=== PATIENT | female | born 1960 | race Caucasian/White ===

== ENCOUNTER → 2018-02-28 06:57 | Outpatient (CLI) | payer MEDICARE, SELFPAY ==
[2018-02-28 07:50] LABS: ALB/GLOB Ratio 0.9 RATIO (0.9-2.4); AST(SGOT) 33 U/L (15-37); Alanine Aminotransfer ALT/SGPT 51 U/L (13-56); Albumin, Serum 3.3 g/dL (3.2-5.0); Alkaline Phosphatase 109 U/L (45-117); Anion Gap 6 (5-15); BUN 13 mg/dL (7-18); BUN/Creat Ratio 16.6 RATIO (10-20); Calcium,Total 8.3 mg/dL (8.5-10.1); Chloride 107 mmol/L (98-107); Cholesterol 188 mg/dL (200); Creatinine, Serum 0.78 mg/dL (0.55-1.02); EST Glomerular Filtration Rate 80 mL/min (>60); Est Glom Filt Rate - Afr Amer 97 mL/min (>60); Globulin 3.7 g/dL (2.2-4.2); Glucose 131 mg/dL (74-106); High Density Lipoprotein 45 mg/dL; Potassium 4.4 mmol/L (3.5-5.1); Sodium Level 141 mmol/L (136-145); Thyroid Stim Hormone (TSH) 1.33 uIU/mL (0.358-3.74); Triglycerides 141 mg/dL; Very Low Density Lipoprotein 28 mg/dL (5-40)
== END ==
PROVIDERS: Family Provider Family Medicine; PCP Family Medicine; Referring Provider Family Medicine; Visit Provider Family Medicine
DX: G62.9 Polyneuropathy, unspecified (principal); R53.83 Other fatigue; E66.9 Obesity, unspecified
CPT/HCPCS: 36415; 80053; 80061; 84443

== ENCOUNTER → 2018-04-04 08:31 | Outpatient (CLI) | payer MEDICARE, SELFPAY ==
--- NOTE | 2018-04-04 08:33 | BI_ITS ---
MAMMOGRAPHY - BILATERAL SCREENING REASON FOR EXAM: Female, 58 years old. Routine annual screening examination. PERTINENT HISTORY: Mother with breast cancer. Remote right excisional breast biopsy. TECHNIQUE: Digital bilateral breast carlos (3D mammographic acquisition) in the CC and MLO projections. 2-D mediolateral oblique (MLO) and craniocaudad (CC) views of both breasts were obtained. CAD: Full Field Digital Mammography with Computer Added Detection was performed. COMPARISON: Comparison is made with prior outside examination dated June 06, 2012. FINDINGS: Breast Composition: There are scattered areas of fibroglandular density. There is an 8.3 mm x 8.8 mm well-defined nodule in the retroareolar region of the left breast. Correlation with ultrasound is recommended. Small benign-appearing bilateral axillary lymph nodes. No other significant abnormalities are identified. BI/SCREENING MAMM (CAD), BILAT IMPRESSION: 8.3 mm x 8.8 mm well-defined nodule in the retroareolar region of the left breast as described. Correlation with ultrasound is recommended. ASSESSMENT CATEGORY: BIRADS Category 0: Incomplete. Need additional imaging evaluation. A letter regarding these results will be sent to the patient by the facility within 30 days. Approximately 10% of breast cancers are not detected by mammography. A normal mammogram should not delay biopsy of a clinically suspicious abnormality. [id number] Electronically Signed: Jorge Skaggs MD at 13:23 EDT Tel [phone], Service support ,
== END ==
PROVIDERS: Family Provider Family Medicine; PCP Family Medicine; Referring Provider Family Medicine; Visit Provider Family Medicine
DX: Z12.31 Encounter for screening mammogram for malignant neoplasm of breast (principal); R53.83 Other fatigue; Z80.3 Family history of malignant neoplasm of breast
CPT/HCPCS: 77063; 77067

== ENCOUNTER → 2018-04-11 09:12 | Outpatient (CLI) | payer MEDICARE, SELFPAY ==
--- NOTE | 2018-04-11 09:15 | US_ITS ---
STUDY: ULTRASOUND BREAST - LEFT REASON FOR EXAM: Female, 58 years old. Abnormal screening mammogram. TECHNIQUE: Axial and longitudinal images of the LEFT breast were performed with a high resolution ultrasound transducer. COMPARISON: Comparison is made with prior mammogram dated April 04, 2018. FINDINGS: LEFT Breast: The mammographic abnormality corresponds to a 8mm by 13 mm x 4 mm cyst at the 6:00 position breast at 1 cm from the nipple. This also evidence of dilated subareolar ducts. US/Breast Limited Unilateral IMPRESSION: The mammographic abnormality corresponds to an 8 mm x 13 mm x 4 mm cyst. Mild degree of retroareolar ductal dilatation. ASSESSMENT CATEGORY: BIRADS Category 2: Benign. A letter regarding these results will be sent to the patient by the facility within 30 days. Electronically Signed: Jorge Skaggs MD at 11:36 EST Tel [phone], Service support ,
== END ==
PROVIDERS: Family Provider Family Medicine; PCP Family Medicine; Referring Provider Family Medicine; Visit Provider Family Medicine
DX: R92.8 Other abnormal and inconclusive findings on diagnostic imaging of breast (principal); N63.42 Unspecified lump in left breast, subareolar
CPT/HCPCS: 76642

== ENCOUNTER → 2019-04-06 08:28 | Outpatient (CLI) | payer MEDICARE, SELFPAY ==
[2019-03-18 15:17] VITALS: BMI 31.8
--- NOTE | 2019-04-06 08:31 | BI_ITS ---
MAMMOGRAPHY - BILATERAL SCREENING REASON FOR EXAM: Female, 59 years old. Routine annual screening examination. PERTINENT HISTORY: Mother with breast cancer. TECHNIQUE: Digital bilateral breast tammy (3D mammographic acquisition) in the CC and MLO projections. 2-D mediolateral oblique (MLO) and craniocaudad (CC) views of both breasts were obtained. CAD: Full Field Digital Mammography with Computer Added Detection was performed. COMPARISON: Comparison is made with prior study dated April 04, 2018. FINDINGS: Breast Composition: There are scattered areas of fibroglandular density. There are no dominant masses or suspicious calcifications. Stable 8mm by 8.5 mm well-defined nodule in the retroareolar region of the left breast. This was demonstrated to be a small cyst on prior ultrasound. No other significant abnormalities are identified. There has been no significant change since the prior study. BI/SCREEN MAMM (CAD) W/TAMMY BILAT IMPRESSION: Stable bilateral screening mammogram. Yearly follow-up mammogram recommended. (A) ASSESSMENT CATEGORY: BIRADS Category 2: Benign. A letter regarding these results will be sent to the patient by the facility within 30 days. Approximately 10% of breast cancers are not detected by mammography. A normal mammogram should not delay biopsy of a clinically suspicious abnormality. [id number] Electronically Signed: Jorge Skaggs, at 13:39 EST , Service support ,
[2019-04-06 09:43] LABS: Hemoglobin A1c 5.9 % (4.2-6.3)
== END ==
PROVIDERS: Family Provider Family Medicine; PCP Family Medicine; Referring Provider Family Medicine; Visit Provider Family Medicine
DX: Z12.31 Encounter for screening mammogram for malignant neoplasm of breast (principal); R73.01 Impaired fasting glucose; Z80.3 Family history of malignant neoplasm of breast
CPT/HCPCS: 36415; 77063; 77067; 83036

== ENCOUNTER → 2021-02-15 09:58 | Outpatient (CLI) | payer MEDICARE, SELFPAY ==
[2021-02-15 11:22] LABS: ALB/GLOB Ratio 0.8 RATIO (0.9-2.4); AST(SGOT) 32 U/L (15-37); Alanine Aminotransfer ALT/SGPT 54 U/L (13-56); Albumin, Serum 3.3 g/dL (3.2-5.0); Alkaline Phosphatase 115 U/L (45-117); Anion Gap 3 (5-15); BUN 14 mg/dL (7-18); BUN/Creat Ratio 17.5 RATIO (10-20); Calcium,Total 8.7 mg/dL (8.5-10.1); Chloride 106 mmol/L (98-107); EST Glomerular Filtration Rate 78 mL/min (>60); Est Glom Filt Rate - Afr Amer 94 mL/min (>60); Globulin 3.9 g/dL (2.2-4.2); Glucose 171 mg/dL (74-106); Potassium 3.8 mmol/L (3.5-5.1); Protein, Total 7.2 g/dL (6.4-8.2); Sodium Level 140 mmol/L (136-145)
[2021-02-15 11:26] LABS: Hemoglobin A1c 6.3 % (3.8-5.6)
== END ==
PROVIDERS: PCP Family Medicine; Referring Provider Family Medicine; Visit Provider Family Medicine
DX: R53.83 Other fatigue (principal); R73.09 Other abnormal glucose
CPT/HCPCS: 36415; 80053; 83036; 84443

== ENCOUNTER 2021-06-05 12:48 | Outpatient (CLI) | payer MEDICARE, SELFPAY ==
--- NOTE | 2021-06-05 12:52 | BI_ITS ---
MAMMOGRAPHY - BILATERAL SCREENING REASON FOR EXAM: Female, 61 years old. Routine annual screening examination. PERTINENT HISTORY: Mother with breast cancer. Remote right excisional breast biopsy. TECHNIQUE: Digital bilateral breast tammy (3D mammographic acquisition) in the CC and MLO projections. 2-D mediolateral oblique (MLO) and craniocaudad (CC) views of both breasts were obtained. CAD: Full Field Digital Mammography with Computer Added Detection was performed. COMPARISON: Comparison is made with prior study dated 04/06/2019 and 04/04/2018. FINDINGS: Breast Composition: There are scattered areas of fibroglandular density. There are no dominant masses or suspicious calcifications. Stable 8 mm x 8.5 mm well-defined nodule in the retroareolar region of the left breast this was demonstrated to be a cyst on prior sonogram. No other significant abnormalities are identified. There has been no significant change since the prior study. BI/SCRN MAMM (CAD)W/TAMMY BILAT IMPRESSION: Stable bilateral screening mammogram. Yearly follow-up mammogram recommended. (A) ASSESSMENT CATEGORY: BIRADS Category 2: Benign. A letter regarding these results will be sent to the patient by the facility within 30 days. Approximately 10% of breast cancers are not detected by mammography. A normal mammogram should not delay biopsy of a clinically suspicious abnormality. [id number] Electronically Signed: Jorge Skaggs MD at 14:01 EST , Service support ,
== END 2021-06-05 23:59 | disposition short-term general hospital (02) ==
LOC: OPBI 12:49
PROVIDERS: PCP Family Medicine; Referring Provider Family Medicine; Visit Provider Family Medicine
DX: Z12.31 Encounter for screening mammogram for malignant neoplasm of breast (principal); Z80.3 Family history of malignant neoplasm of breast
CPT/HCPCS: 77063; 77067

== ENCOUNTER 2021-06-12 06:52 | Day surgery (SDC) | payer MEDICARE, SELFPAY ==
[2021-06-12] VITALS (7 sets, daily range): BP systolic 104–135; BP diastolic 54–78; PULSE 70–76; RESP 16; TEMP 36.2–36.4; O2SAT 93–97; BMI 34.5
--- NOTE | 2021-06-12 | COLBX_PTH ---
PATIENT: KLAUS MURRAY LOC: EN U#:[id number] AGE/SX: 61/F ROOM: RE06/12/[address]: Dr. Nilton Jean Baptiste DO : 1960 BED: DIS: 06/12/2021 SPEC #: [id number] RECD: 06/12/21 12:51 STATUS: CY JENNY #: [id number] AB: 06/12/21 00:[address]: Nilton Jean Baptiste DEPT: SURGICAL PATHOLOGY RECD BY: Floyd Scanlon ENTERED: 06/12/21 12:52 SP TYPE: COLON BX OTHR DR: Dr. Guanaco Terry DO Tissues: COLON BIOPSY Procedures: Surgery Specimen Level IV HEADER OPERATION: Colonoscopy (MAC) PRE-OP DIAGNOSIS: History of colon cancer TISSUE SUBMITTED: Biopsy of anastomosis MICROSCOPIC DIAGNOSIS Colon at area of anastomosis, biopsy: No pathologic change. AM:alistair 06/13/2021 MICROSCOPIC DESCRIPTION Slides are reviewed. GROSS DESCRIPTION Received in fixative is one container labeled with the patient's name and designated biopsy of anastomosis. The specimen consists of two irregular fragments of light garcia soft tissue that in aggregate measure 0.4 x 0.3 x 0.1 cm. The specimen is totally submitted in one cassette. / SJ:rg 06/12/2021 TC:5 CPT: 97210
[2021-06-12] MEDS: Lactated Ringers 1,000 ML 15 ML IV (07:21)
--- NOTE | 2021-06-12 07:46 | PCM.HP.BLA ---
History and Physical Date of Admission: 06/12/21 KLAUS MURRAY, is a 61 F who presents to the office today for a surveillance colonoscopy. She was originally diagnosed with colon cancer back in 2001. Her original surgery was a segmental resection with primary anastomosis. She did not originally have a temporary colostomy. She had a recurrence of the cancer 2 years later and after that surgery she underwent chemo and radiation. Presents today to colorectal cancer follow up. Last colonoscopy performed 5-6 years ago with normal results. 2001 She was diagnosed with colorectal cancer with resection, external radiation and chemotherapy. Relapse in 2003 with colostomy placed, internal radiation and chemotherapy. Currently in remission. ROS Const Constitutional: Positive for fatigue and headache(s) ENT ENT: Positive for headache(s) Gastro GI: Positive for heartburn Neuro Neurology: Positive for headache(s) Endo Endocrine: Positive for fatigue Exam Const General: cooperative and comfortable Nutritional Appearance: average body habitus and well nourished HENMT Head: normal to inspection Ears: hearing grossly normal bilaterally Nose: external nose normal Face and sinus: normal facial exam Mouth: oral mucosae normal Throat: posterior oropharynx normal Eyes General: appearance normal, both eyes and all related structures Neck Neck: normal visual inspection Chest Chest palpation & inspection: normal inspection of the chest and normal palpation of entire chest wall Resp Effort & Inspection: normal respiratory effort Auscultation: Bilateral: Clear to Auscultation Cardio Palpation: normal PMI Rate: regular rate Rhythm: regular rhythm GI Inspection: normal to inspection and other (Normal-appearing stoma.) Auscultation: normal bowel sounds Percussion: normal to percussion Palpation: no hepatosplenomegaly Skin General: no rashes or lesions noted Neuro General: patient alert Extrem General: normal to inspection Psych Affect: normal affect Quality Reporting Tobacco Screening ([facility] 138) Smoking Status: Never smoker Assessment and Plan Assessment and Plan (1) History of colon cancer in adulthood: Status: Acute Plan - Dr. Callaway Friend, DO: She will undergo colonoscopy. We will go through the stoma and all way to determine ileum. She was explained alternatives, risk, benefits including not withstanding bleeding, infection, sepsis, perforation, need for emergency or . Should have an ASA of one. And I have re-examined the patient. There are no clinical changes since date of exam.
--- NOTE | 2021-06-12 08:29 | OP.COLON_ITS ---
Patient Name: Ambreen Scales Procedure Date: 06/12/2021 7:51 AM Date of : 1960 Age: 61 Procedure: Colonoscopy Indications: High risk colon cancer surveillance: Personal history of colon cancer Providers: Nilton Jean Baptiste DO Medicines: See the Anesthesia note for documentation of the administered medications Patient Profile: Last Colonoscopy: 3 years ago. Complications: No immediate complications. Procedure: Pre-Anesthesia Assessment: - Prior to the procedure, a History and Physical was performed, and patient medications and allergies were reviewed. The patient is competent. The risks and benefits of the procedure and the sedation options and risks were discussed with the patient. All questions were answered and informed consent was obtained. Patient identification and proposed procedure were verified by the physician in the pre-procedure area. Mental Status Examination: alert and oriented. Airway Examination: normal oropharyngeal airway and neck mobility. Respiratory Examination: clear to auscultation. CV Examination: normal. Prophylactic Antibiotics: The patient does not require prophylactic antibiotics. Prior Anticoagulants: The patient has taken no previous anticoagulant or antiplatelet agents. After reviewing the risks and benefits, the patient was deemed in satisfactory condition to undergo the procedure. The anesthesia plan was to use moderate sedation / analgesia (conscious sedation). Immediately prior to administration of medications, the patient was re-assessed for adequacy to receive sedatives. The heart rate, respiratory rate, oxygen saturations, blood pressure, adequacy of pulmonary ventilation, and response to care were monitored throughout the procedure. The physical status of the patient was re-assessed after the procedure. After I obtained informed consent, the scope was passed under direct vision. Throughout the procedure, the patient's blood pressure, pulse, and oxygen saturations were monitored continuously. The pediatric colonoscope was introduced through the anus and advanced to the cecum, identified by the appendiceal orifice, ileocecal valve and palpation. The ileocecal valve, appendiceal orifice, and rectum were photographed. Moderate Sedation: Moderate (conscious) sedation was administered by the endoscopy nurse and supervised by the endoscopist. The following parameters were monitored: oxygen saturation, heart rate, blood pressure, and response to care. Total physician intraservice time was 15 minutes. Scope In: 8:06:51 AM Scope Withdrawal Time 0 hours 10 minutes 40 seconds Scope Out: 8:20:00 AM Total Procedure Duration Time 0 hours 13 minutes 9 seconds Findings: There was evidence of a prior end sigmoid colostomy in the sigmoid colon. This was patent and was characterized by healthy appearing mucosa. The anastomosis was traversed. The entire examined colon appeared normal. An area of mildly congested mucosa was found at the surgical stoma. Biopsies were taken with a cold forceps for histology. Verification of patient identification for the specimen was done. Estimated blood loss: none. Impression: - Patent end sigmoid colostomy, characterized by healthy appearing mucosa. - The entire examined colon is normal. - No specimens collected. Recommendation: - Discharge patient to home. - Resume previous diet. - Continue present medications. - Await pathology results. - Repeat colonoscopy in 3 years for surveillance based on personal history of colon cancer. - Return to GI office PRN. Procedure Code(s): --- Professional --- 52282, Colonoscopy, flexible; with biopsy, single or multiple 94663, 59, Moderate sedation services provided by the same physician or other qualified health family day care provider performing the diagnostic or therapeutic service that the sedation supports, requiring the presence of an independent trained observer to assist in the monitoring of the patient's level of consciousness and physiological status; initial 15 minutes of intraservice time, patient age 5 years or older CPT copyright 2017 [employer]. All rights reserved. The codes documented in this report are preliminary and upon batch room technician review may be revised to meet current compliance requirements. Nilton Jean Baptiste DO 06/12/2021 8:28:14 AM This report has been signed electronically. Number of Addenda: 1 Note Initiated On: 06/12/2021 7:51 AM Addendum Number: 1 Addendum Date: 02/08/2022 6:12:02 AM MAC was used instead of moderate sedation for the patient. Nilton Jean Baptiste DO 02/08/2022 6:12:07 AM This report has been signed electronically.
--- NOTE | 2021-06-12 08:29 | OP.CCLET_ITS ---
02/08/2022 Guanaco Terry Re : Colonoscopy procedure for Ambreen Scales Dear Dr. Terry This procedure was performed on Saturday, June 12, 2021. My impressions and recommendations are as follows: Impressions : - Patent end sigmoid colostomy, characterized by healthy appearing mucosa. - The entire examined colon is normal. - No specimens collected. Recommendations : - Discharge patient to home. - Resume previous diet. - Continue present medications. - Await pathology results. - Repeat colonoscopy in 3 years for surveillance based on personal history of colon cancer. - Return to GI office PRN. My findings are described in the full procedure note, which is enclosed. If I can be of further assistance, please feel free to contact me at . Sincerely, Nilton Friend, 06/12/2021 8:28:14 AM This report has been signed electronically.
[2021-06-12 09:41] LABS: Bedside Glucose 95 mg/dL (70-110)
== END 2021-06-12 23:59 | disposition home or self-care (01) ==
LOC: EN 06:56 → AC 06:57
PROVIDERS: PCP Family Medicine; Referring Provider Family Medicine; Visit Provider Internal Medicine Gastroenterology
PROC: 0DJD8ZZ Inspection of Lower Intestinal Tract, Via Natural or Artificial Opening Endoscopic (ICD-10-PCS; CPT 45378; principal; 2021-06-12 07:55)
DX: Z12.11 Encounter for screening for malignant neoplasm of colon (principal); E11.9 Type 2 diabetes mellitus without complications; Z85.038 Personal history of other malignant neoplasm of large intestine; K21.9 Gastro-esophageal reflux disease without esophagitis; Z90.49 Acquired absence of other specified parts of digestive tract
CPT/HCPCS: 82962; 88305; J7120; J2405

== ENCOUNTER → 2022-03-14 | Outpatient (CLI) | payer MEDICARE, SELFPAY ==
[2022-03-14 12:25] LABS: Absolute Lymphocyte Count 2.12 X10^3/uL (0.83-4.51); Absolute Neutrophil Count 3.9 X10^3/uL (2.0-7.7); Basophil# 0.04 X10^3/uL; Basophil% 0.6 % (0-1); Eosinophil# 0.14 X10^3/uL; Eosinophils% 2.1 % (0-5); Hematocrit 44.5 % (37-47); Hemoglobin 14.7 g/dL (12.0-15.0); Lymphocyte # 2.12 X10^3/ul (0.83-4.51); Lymphocyte % 31.4 % (19-41); Mean Corpuscular Hgb 28.5 pg (27.0-32.0); Mean Corpuscular Volume 86.4 fL (81-99); Mean Platelet Vol. 11.2 fl (6.2-12.0); Monocyte# 0.54 X10^3/uL; NRBC Flagged by Analyzer 0 % (0-5); Neutrophil % 57.6 % (47-70); Platelet Count 247 K/mm3 (150-450); RBC Distribution Width CV 13.1 % (11.6-14.6); RBC Distribution Width SD 40.9 fl (35.1-43.9); Red Blood Count 5.15 M/mm3 (4.2-5.4); White Blood Count 6.8 K/mm3 (4.4-11.0)
[2022-03-14 12:40] LABS: ALB/GLOB Ratio 0.9 RATIO (0.9-2.4); AST(SGOT) 32 U/L (15-37); Alanine Aminotransfer ALT/SGPT 41 U/L (13-56); Albumin, Serum 3.5 g/dL (3.2-5.0); Alkaline Phosphatase 113 U/L (45-117); Anion Gap 7 (5-15); BUN 12 mg/dL (7-18); BUN/Creat Ratio 17.3 RATIO (10-20); Calcium,Total 8.9 mg/dL (8.5-10.1); Chloride 108 mmol/L (98-107); Cholesterol 196 mg/dL (200); EST Glomerular Filtration Rate 91 mL/min (>60); Est Glom Filt Rate - Afr Amer 110 mL/min (>60); Globulin 3.7 g/dL (2.2-4.2); Glucose 121 mg/dL (74-106); High Density Lipoprotein 46 mg/dL; Potassium 3.8 mmol/L (3.5-5.1); Protein, Total 7.2 g/dL (6.4-8.2); Sodium Level 143 mmol/L (136-145); Thyroid Stim Hormone (TSH) 0.72 uIU/mL (0.358-3.74); Triglycerides 183 mg/dL; Very Low Density Lipoprotein 37 mg/dL (5-40)
[2022-03-14 13:08] LABS: Hemoglobin A1c 6.4 % (3.8-5.6)
== END | disposition home or self-care (01) ==
LOC: BIMLAB 09:11
PROVIDERS: PCP Family Medicine; Referring Provider Nurse Practitioner Family; Visit Provider Nurse Practitioner Family
DX: Z00.00 Encounter for general adult medical examination without abnormal findings (principal); E11.9 Type 2 diabetes mellitus without complications; G62.9 Polyneuropathy, unspecified; R53.83 Other fatigue
CPT/HCPCS: 36415; 80053; 80061; 83036; 84443; 85025

== ENCOUNTER 2022-10-18 15:50 | Emergency (ER) | payer MEDICARE, SELFPAY ==
[2022-10-18 15:51] VITALS: BP 187/81; PULSE 88; RESP 18; TEMP 36.7; O2SAT 98; BMI 36.6
--- NOTE | 2022-10-18 17:39 | EX.ED.GENINJ ---
HPI <ANDRADE Cornejo - Last Filed: 10/18/22 20:04> History of Present Illness Chief Complaint: Other, Pain/Inj Narrative Narrative: 52-year-old female states she got her eyes dilated last night when she was driving home she started to have sharp pains in both her external ears. The sharp pain comes in a short burst and is in both the ears. She also has nausea and dry heaving. She has no headache, runny nose, sore throat, or upper respiratory symptoms. She states her eye evaluation was normal and she told that no change was needed to her contacts from last year. [facility] <ANDRADE Cornejo - Last Filed: 10/18/22 20:04> [facility] Medical History (Updated 10/18/22 @ 18:15 by ANDRADE Cornejo) Diabetes Encounter for preventative adult health care examination Frequent headaches GERD (gastroesophageal reflux disease) Heartburn History of colon cancer Neuropathy Seasonal allergies Status post chemoradiation Wears contact lenses Home Medications meclizine 25 mg tablet 25 mg PO BID PRN dizziness #60 tabs 02/25/18 [Rx Last Taken Unknown] gabapentin 100 mg capsule 100 mg PO DAILY #90 caps 05/10/21 [Rx Last Taken Unknown] semaglutide 0.25 mg or 0.5 mg (2 mg/1.5 mL) subcutaneous pen injector (Ozempic) 0.25 mg (0.2 mL) subcut QWEEK #1.5 mL 03/20/22 [Rx Last Taken Unknown] Allergy/AdvReac Type Severity Reaction Status Date / Time adhesive tape Allergy Severe Rash Verified 10/18/22 15:52 Corticosteroids Allergy Severe Other Verified 10/18/22 15:52 (Glucocorticoids) [steriods] Opioids - Morphine Analogues Allergy Severe stop Verified 10/18/22 15:52 breathing Penicillins Allergy Severe Rash Verified 10/18/22 15:52 diphenhydramine AdvReac Severe Other Verified 10/18/22 15:52 [From Benadryl] oxycodone [From Percocet] AdvReac Severe other Verified 10/18/22 15:52 Family History Father Myocardial infarction, Onset Age: 63 passed from it. Diabetes Mother Diabetes Parkinsons Breast cancer Grandmother Hypertension CVA (cerebral vascular accident) Surgical History (Updated 12/31/21 @ 08:11 by Mary Powers) H/O: hysterectomy History of arthroscopic knee surgery History of back surgery History of bowel resection History of breast biopsy History of carpal tunnel release History of colostomy history of stoma revision History of tonsillectomy Social History Smoking Status: Never smoker alcohol intake: never substance use type: does not use what type of physical activity do you participate in: none ROS <ANDRADE Cornejo - Last Filed: 10/18/22 20:04> ROS ED ROS Narrative Constitutional: Negative for fever, chills, malaise. ENT: Negative for sore throat, rhinorrhea. CVS: Negative for chest pain, syncope. Respiratory: Negative for shortness of breath, cough. GI: Positive for nausea. Negative for abdominal pain, vomiting, diarrhea. Neuro: Negative for headache. Skin: Negative for rash. EXAM <ANDRADE Cornejo - Last Filed: 10/18/22 20:04> Physical Exam Narrative Exam Narrative: CONST: Patient sitting in no acute distress. EYES: Normal inspection. ENT: Moist mucous membranes with normal oropharynx, nares clear. Normal external inspection of the ears with no tenderness over the pinna or tragus, normal canals and TMs bilaterally. No mastoid erythema swelling or tenderness. NECK: Normal inspection. No meningismus. RESP: No respiratory distress, CTAB. CVS: Regular rate and rhythm, no murmur, no gallop. SKIN: Color normal, no rash, warm, dry, intact. EXTREMITIES: Normal appearance, no pedal edema. NEURO: Oriented x4. PSYCH: Normal affect. Const Vital Signs: 10/18/22 15:51 10/18/22 17:44 10/18/22 18:39 Temperature 98.1 F Temperature Source Temporal Pulse Rate 88 76 Respiratory Rate 18 15 Respiratory Effort Normal Non-Labored Respiratory Pattern Normal Blood Pressure 187/81 H 149/88 H Blood Pressure Mean 116 Pulse Ox 98 97 Oxygen Delivery Method Room Air <Dr. Reuben Li DO - Last Filed: 10/19/22 00:02> Physical Exam Const Vital Signs: 10/18/22 15:51 10/18/22 17:44 10/18/22 18:39 Temperature 98.1 F Temperature Source Temporal Pulse Rate 88 76 Respiratory Rate 18 15 Respiratory Effort Normal Non-Labored Respiratory Pattern Normal Blood Pressure 187/81 H 149/88 H Blood Pressure Mean 116 Pulse Ox 98 97 Oxygen Delivery Method Room Air [facility] <ANDRADE Cornejo - Last Filed: 10/18/22 20:04> [facility] Narrative Medical decision making narrative: Patient is having sharp pains in both external ears. She appears well and nontoxic. BP is 187/81 with otherwise normal vital signs. Her HEENT exam is normal. Her ears appear normal there is no reproducible pain. There are no signs of otitis media or externa. No evidence of mastoiditis. Her cranial nerves are intact. The distribution of her pain is not consistent with trigeminal neuralgia. There is no evidence of rash or zoster. I am not sure what the etiology of her pain is but at this time it does not appear to be life-threatening and I recommended she follow-up with her primary care doctor. <Dr. Reuben Li DO - Last Filed: 10/19/22 00:02> [facility] Treatment and Re-Evaluation Narrative: ED attending note: I evaluated the patient in conjunction with the GERARDO. I agree with his/her statements and above findings. I have personally performed a face to face assessment of the patient and have reviewed the GERARDO Note. I performed a substantive portion of the visit including all aspects of the following. I personally saw the patient performed chart review, physical exam, reviewed labs, imaging (if obtained), and formulated a treatment and management plan. Exam: Nursing triage notes reviewed, Vital signs reviewed Constitutional: please see [facility] HENT: MMM, no obvious ear abnormalities, no evidence of hematoma auris, TMs pearly augustine, normal cone of light, no hyperemia, no middle ear effusion, no mastoid tenderness. No temporal artery tenderness. Eyes: Pupils equal round and reactive to light, Extraocular muscles intact Neck: No stridor, no JVD, full neck ROM Lungs: Clear to auscultation, No wheezing or rales. No increased work of breathing, no conversational dyspnea, no accessory muscle use, no nasal flaring. No respiratory distress noted Heart: Regular rate and rhythm, No murmurs, No rubs and No gallops, 2+ distal pulses (radial, femoral, posterior tibial) in all extremities Abdomen: Soft, there is no tenderness, rigidity, rebound or guarding, no obvious peritoneal signs, no palpable pulsatile abdominal masses, no auscultated abdominal bruit : No CVAT Extremities: No edema Neuro: Alert and oriented x3, neuro exam at baseline, cranial nerves II through XII are intact. No pain with extraocular muscle movement. There is negative test of skew. Normal speech. 5 of 5 strength in upper and lower extremities in flexion extension. Intact sensation to light touch in upper and lower extremity dermatomes. No truncal or extremity ataxia. No dysdiadochokinesia. Normal gait. 2+ reflexes. No meningeal signs. Negative Babinski. NIH of 0 Skin: No rash or lesions noted MDM/plan: Chief Complaint: Ear pain External records reviewed: No recent advanced imaging of the head Patient's history and physical exam are benign. No clear life or limb threatening etiology could be ascertained. Will give symptomatic treatment here and discharged home with close outpatient PCP and neurology follow-up. Factors affecting care: History of cancer Social determinants of health: Denies drug use History obtained from others: The patient's sister Shared decision making: I will have a discussion with the patient and or visitors regarding risk/benefits of further testing or admission. They will be made aware of of the risk/benefits inherent in this decision they will be given the opportunity to voice understanding. Consults: None Discharge Plan Triage Chief Complaint: Other, Pain/Inj ED Midlevel Provider: Ludmila Parks ED Provider: Reuben iL Dx/Rx/DC Orders Clinical Impression: Acute ear pain, Paresthesias Instructions: Anatomy of the Ear, ED Paraesthesias Prescriptions: No Action meclizine 25 mg tablet 25 mg PO BID PRN (Reason: dizziness) Qty: 60 2RF gabapentin 100 mg capsule 100 mg PO DAILY Qty: 90 2RF Ozempic 0.25 mg or 0.5 mg(2 mg/1.5 mL) pen injector 0.25 mg subcut QWEEK Qty: 1.5 2RF Rx Instructions: for 4 doses Primary Care Provider: Guanaco Terry Referrals: Guanaco Terry, DO [Primary Care Provider] - Activity Restrictions/Additional Instructions: I am not sure what is causing this but you do not appear to have a life-threatening disorder. Please follow-up with her primary care doctor Disposition Disposition: Home, Self Care Discharge Date/Time: 10/18/22 18:39
[2022-10-18] MEDS: Ondansetron ODT 4 MG Tablet PO (18:11)
--- NOTE | 2022-10-18 18:16 | EDS_ITS ---
HPI History of Present Illness Chief Complaint: Other, Pain/Inj PFSH PFSH Medical History (Updated 10/18/22 @ 18:15 by ANDRADE Cornejo) Diabetes Encounter for preventative adult health care examination Frequent headaches GERD (gastroesophageal reflux disease) Heartburn History of colon cancer Neuropathy Seasonal allergies Status post chemoradiation Wears contact lenses Home Medications meclizine 25 mg tablet 25 mg PO BID PRN dizziness #60 tabs 02/25/18 [Rx Last Taken Unknown] gabapentin 100 mg capsule 100 mg PO DAILY #90 caps 05/10/21 [Rx Last Taken Unknown] semaglutide 0.25 mg or 0.5 mg (2 mg/1.5 mL) subcutaneous pen injector (Ozempic) 0.25 mg (0.2 mL) subcut QWEEK #1.5 mL 03/20/22 [Rx Last Taken Unknown] Allergy/AdvReac Type Severity Reaction Status Date / Time adhesive tape Allergy Severe Rash Verified 10/18/22 15:52 Corticosteroids Allergy Severe Other Verified 10/18/22 15:52 (Glucocorticoids) [steriods] Opioids - Morphine Analogues Allergy Severe stop Verified 10/18/22 15:52 breathing Penicillins Allergy Severe Rash Verified 10/18/22 15:52 diphenhydramine AdvReac Severe Other Verified 10/18/22 15:52 [From Benadryl] oxycodone [From Percocet] AdvReac Severe other Verified 10/18/22 15:52 Family History Father Myocardial infarction, Onset Age: 63 passed from it. Diabetes Mother Diabetes Parkinsons Breast cancer Grandmother Hypertension CVA (cerebral vascular accident) Surgical History (Updated 12/31/21 @ 08:11 by Mary Powers) H/O: hysterectomy History of arthroscopic knee surgery History of back surgery History of bowel resection History of breast biopsy History of carpal tunnel release History of colostomy history of stoma revision History of tonsillectomy Social History Smoking Status: Never smoker alcohol intake: never substance use type: does not use what type of physical activity do you participate in: none EXAM Physical Exam Const Vital Signs: 10/18/22 15:51 10/18/22 17:44 Temperature 98.1 F Temperature Source Temporal Pulse Rate 88 Respiratory Rate 18 Respiratory Effort Normal Non-Labored Respiratory Pattern Normal Blood Pressure 187/81 H Blood Pressure Mean 116 Pulse Ox 98 Oxygen Delivery Method Room Air [facility] Treatment and Re-Evaluation Narrative: ED attending note: I evaluated the patient in conjunction with the GERARDO. I agree with his/her statements and above findings. I have personally performed a face to face assessment of the patient and have reviewed the GERARDO Note. I performed a substantive portion of the visit including all aspects of the following. I personally saw the patient performed chart review, physical exam, reviewed labs, imaging (if obtained), and formulated a treatment and management plan. Brief history: Patient states she developed acute onset of bilateral ear pain prior to arrival. No trauma. No falls. She also notes a mild headache and dry heaving. This is not the worst headache of her life. She had similar headaches in the past. Patient denies sudden onset or thunderclap headache, denies maximal intensity within 1 minute, vomiting, neck pain or stiffness, changes in vision, fever, history malignancy, syncope, seizures. Exam: Nursing triage notes reviewed, Vital signs reviewed Constitutional: please see [facility] HENT: MMM, bilateral ears without evidence of erythema, cauliflower ear, no mastoid tenderness, bilateral TMs pearly augustine with a good cone of light, no hyperemia, no middle ear effusion, no obvious deformity or trauma noted to bilateral ears. Eyes: Pupils equal round and reactive to light, Extraocular muscles intact Neck: No stridor, no JVD, full neck ROM Lungs: Clear to auscultation, No wheezing or rales. No increased work of breathing, no conversational dyspnea, no accessory muscle use, no nasal flaring. No respiratory distress noted Heart: Regular rate and rhythm, No murmurs, No rubs and No gallops, 2+ distal pulses (radial, femoral, posterior tibial) in all extremities Abdomen: Soft, there is no tenderness, rigidity, rebound or guarding, no obvious peritoneal signs, no palpable pulsatile abdominal masses, no auscultated abdominal bruit : No CVAT Extremities: No edema Neuro: Alert and oriented x3, neuro exam at baseline, cranial nerves II through XII are intact. No pain with extraocular muscle movement. There is negative test of skew. Normal speech. 5 of 5 strength in upper and lower extremities in flexion extension. Intact sensation to light touch in upper and lower extremity dermatomes. No truncal or extremity ataxia. No dysdiadochokinesia. Normal gait. 2+ reflexes. No meningeal signs. Negative Babinski. NIH of 0 Skin: No rash or lesions noted MDM/plan: Chief Complaint: Ear pain, headache External records reviewed: No recent advanced imaging of the head The etiology of the patient's presentation is unclear. I suspect it is inflammatory in nature. We will give pain medicine here and give the patient neurology follow-up. No clear life-limiting etiology could be ascertained. Low suspicion for acute intracranial pathology. There is no signs of ear trauma, otitis media, mastoiditis on exam. Patient is appropriate discharge home Factors affecting care: History of colon cancer Social determinants of health: Denies drug use History obtained from others: The patient's sister Shared decision making: I will have a discussion with the patient and or visitors regarding risk/benefits of further testing or admission. They will be made aware of of the risk/benefits inherent in this decision they will be given the opportunity to voice understanding. Consults: None Discharge Plan Triage Chief Complaint: Other, Pain/Inj ED Midlevel Provider: Ludmila Parks ED Provider: Reuben Li Dx/Rx/DC Orders Clinical Impression: Acute ear pain, Paresthesias Instructions: Anatomy of the Ear, ED Paraesthesias Prescriptions: No Action meclizine 25 mg tablet 25 mg PO BID PRN (Reason: dizziness) Qty: 60 2RF gabapentin 100 mg capsule 100 mg PO DAILY Qty: 90 2RF Ozempic 0.25 mg or 0.5 mg(2 mg/1.5 mL) pen injector 0.25 mg subcut QWEEK Qty: 1.5 2RF Rx Instructions: for 4 doses Primary Care Provider: Guanaco Terry Referrals: Guanaco Terry, DO [Primary Care Provider] - Activity Restrictions/Additional Instructions: I am not sure what is causing this but you do not appear to have a life- threatening disorder. Please follow-up with her primary care doctor Disposition Disposition: Home, Self Care
[2022-10-18] MEDS: HYDROmorphone 2 MG TABLET PO (18:34)
[2022-10-18 18:39] VITALS: BP 149/88; PULSE 76; RESP 15; O2SAT 97
== END 2022-10-18 18:39 | disposition home or self-care (01) ==
LOC: ED 18:22
PROVIDERS: Emergency Provider Emergency Medicine; PCP Family Medicine; Visit Provider Emergency Medicine
DX: H92.03 Otalgia, bilateral (principal); E11.40 Type 2 diabetes mellitus with diabetic neuropathy, unspecified; R20.2 Paresthesia of skin; Z79.85 Long-term (current) use of injectable non-insulin antidiabetic drugs; Z79.899 Other long term (current) drug therapy
CPT/HCPCS: 99283

== ENCOUNTER → 2023-05-03 | Outpatient (CLI) | payer MEDICARE, SELFPAY ==
[2023-05-03 11:44] LABS: Bacteria 0 SEEN /hpf (None Seen); Mucous, Urine 0 SEEN /hpf (<or=2+); Red Blood Cells-Urine 0 SEEN /hpf (0-5); Squamous Epithelial Cells - UA 0 SEEN /hpf (5-10)
[2023-05-03 12:11] LABS: Color, Urine Yellow (Yellow); Glucose, Dipstick Normal (Normal); Ketone-Dipstick Negative (Negative); Leukocyte Esterase-Dipstick 500 /ul (Negative); Nitrite-Dipstick Negative (Negative); Occult Blood-Urine 250 /ul (Negative); Protein-Dipstick 100 mg/dl (Negative); Urine Bilirubin Dipstick Negative (Negative); Urine Clarity Sl. Cloudy (Clear); Urine Urobilinogen Normal (Normal)
[2023-05-03 12:21] LABS: White Blood Cells >100 SEEN /hpf (0-5)
== END | disposition home or self-care (01) ==
LOC: LABSPEC 11:42
PROVIDERS: PCP Family Medicine; Visit Provider Physician Assistant
DX: R53.83 Other fatigue (principal); R30.0 Dysuria
CPT/HCPCS: 81001; 87086; 87088; 87186

== ENCOUNTER → 2023-05-07 | Outpatient (CLI) | payer MEDICARE, SELFPAY ==
[2023-05-07 16:42] LABS: ALB/GLOB Ratio 0.9 RATIO (0.9-2.4); AST(SGOT) 35 U/L (15-37); Alanine Aminotransfer ALT/SGPT 52 U/L (13-56); Albumin, Serum 3.7 g/dL (3.2-5.0); Alkaline Phosphatase 115 U/L (45-117); Anion Gap 5 (5-15); BUN 10 mg/dL (7-18); BUN/Creat Ratio 8.7 RATIO (10-20); Calcium,Total 9.3 mg/dL (8.5-10.1); Chloride 106 mmol/L (98-107); Cholesterol 188 mg/dL (200); Creatinine, Serum 1.15 mg/dL (0.55-1.02); EST Glomerular Filtration Rate 50 mL/min (>60); Est Glom Filt Rate - Afr Amer 61 mL/min (>60); Globulin 3.9 g/dL (2.2-4.2); Glucose 104 mg/dL (74-106); High Density Lipoprotein 48 mg/dL; Potassium 4.2 mmol/L (3.5-5.1); Protein, Total 7.6 g/dL (6.4-8.2); Sodium Level 139 mmol/L (136-145); Triglycerides 159 mg/dL; Very Low Density Lipoprotein 32 mg/dL (5-40)
== END | disposition home or self-care (01) ==
LOC: BIMLAB 15:04
PROVIDERS: PCP Family Medicine; Referring Provider Family Medicine; Visit Provider Family Medicine
DX: E11.9 Type 2 diabetes mellitus without complications (principal)
CPT/HCPCS: 36415; 80053; 80061

== ENCOUNTER → 2023-05-16 | Outpatient (CLI) | payer MEDICARE, SELFPAY ==
--- NOTE | 2023-05-16 07:02 | BI_ITS ---
MAMMOGRAPHY - BILATERAL SCREENING REASON FOR EXAM: Female, 63 years old. Routine annual screening examination. PERTINENT HISTORY: Mother with breast cancer. Remote right excisional breast biopsy. TECHNIQUE: Digital bilateral breast tammy (3D mammographic acquisition) in the CC and MLO projections. 2-D mediolateral oblique (MLO) and craniocaudad (CC) views of both breasts were obtained. CAD: Full Field Digital Mammography with Computer Added Detection was performed. COMPARISON: Comparison is made with prior study dated June 05, 2021 and April 06, 2019. FINDINGS: Breast Composition: There are scattered areas of fibroglandular density. There are no dominant masses or suspicious calcifications. Stable fat-containing bilateral axillary lymph nodes. No other significant abnormalities are identified. There has been no significant change since the prior study. BI/SCRN MAMM (CAD)W/TAMMY BILAT IMPRESSION: Stable bilateral screening mammogram. Yearly follow-up mammogram recommended. (A) ASSESSMENT CATEGORY: BIRADS Category 2: Benign. A letter regarding these results will be sent to the patient by the facility within 30 days. Approximately 10% of breast cancers are not detected by mammography. A normal mammogram should not delay biopsy of a clinically suspicious abnormality. [id number] Electronically Signed: Jorge Skaggs MD at 9:16 EST ,
== END | disposition home or self-care (01) ==
LOC: OPBI 06:59
PROVIDERS: PCP Family Medicine; Referring Provider Family Medicine; Visit Provider Family Medicine
DX: Z12.31 Encounter for screening mammogram for malignant neoplasm of breast (principal); Z80.3 Family history of malignant neoplasm of breast
CPT/HCPCS: 77063; 77067

== ENCOUNTER → 2023-08-20 | Outpatient (CLI) | payer OTHER, SELFPAY ==
[2023-08-20 16:45] LABS: Anion Gap 6 (5-15); BUN 9 mg/dL (7-18); Calcium,Total 9.1 mg/dL (8.5-10.1); Chloride 107 mmol/L (98-107); Creatinine, Serum 0.82 mg/dL (0.55-1.02); EST Glomerular Filtration Rate 75 mL/min (>60); Est Glom Filt Rate - Afr Amer 91 mL/min (>60); Glucose 90 mg/dL (74-106); Potassium 3.8 mmol/L (3.5-5.1); Sodium Level 141 mmol/L (136-145)
== END | disposition home or self-care (01) ==
LOC: BIMLAB 14:54
PROVIDERS: PCP Family Medicine; Visit Provider Family Medicine
DX: E11.9 Type 2 diabetes mellitus without complications (principal)
CPT/HCPCS: 36415; 80048

== ENCOUNTER 2023-10-23 09:28 | Emergency (ER) | payer MEDICARE, SELFPAY ==
[2023-10-23 09:30] VITALS: BP 138/75; PULSE 75; PULSE 78; RESP 16; TEMP 35.5; O2SAT 100; O2SAT 94
[2023-10-23 09:36] VITALS: BMI 33.0
--- NOTE | 2023-10-23 10:05 | RAD_ITS ---
STUDY: X-RAY - RIGHT TIBIA AND FIBULA REASON FOR EXAM: Female, 63 years old. Trauma. TECHNIQUE: 3 views of the right tibia and fibula were obtained. COMPARISON: None. FINDINGS: Normal visualized tibia. Normal visualized fibula. There is no demonstrated acute fracture. The soft tissue structures are unremarkable. RAD/Tibia & Fibula 2 Views IMPRESSION: Normal x-ray examination of the right tibia and fibula. Electronically Signed: Hipolito Cardona MD at 10:38 EDT ,
--- NOTE | 2023-10-23 10:07 | EX.ED.GENINJ ---
HPI History of Present Illness Chief Complaint: Trauma Informant: patient and family Narrative Narrative: 63-year-old female presenting to the emergency room with a chief complaint of fall back laceration. Patient states that she was at home today where she is remodeling. She reports that they are about 12 pieces of drywall stacked laying up against the wall and her dog got behind them. She pulled him forward to allow the dog to get out in the drywall then came forward and pushed her to the ground. She cut her back on the corner of the dog crate. Unsure of last tetanus. She states that she fell down to the ground in the legs were twisted to her side and she had a difficult time getting out. Her mother was there with her and she called for help. Patient wished to come to [facility] emergency room and so they drove from their house to here. She was able to bear weight. Patient notes chronic neuropathy. She states that her legs are numb but when directly asked she states she can feel that there is more tingling she notes more significant pain in the proximal right medial leg and left foot. Tetanus Immunization: Unknown [facility] Medical History Encounter for preventative adult health care examination Wears contact lenses Diabetes Heartburn GERD (gastroesophageal reflux disease) Seasonal allergies Frequent headaches Neuropathy Status post chemoradiation History of colon cancer Home Medications ?Medication ?Instructions ?Recorded ?Last Taken ?Type tirzepatide 5 mg/0.5 mL 5 mg (0.5 mL) subcut QWEEK #2 mL 07/10/23 Unknown Rx subcutaneous pen injector Allergy/AdvReac Type Severity Reaction Status Date / Time adhesive tape Allergy Severe Rash Verified 10/23/23 09:30 Corticosteroids Allergy Severe Other Verified 10/23/23 09:30 (Glucocorticoids) (steriods) Opioids - Morphine Analogues Allergy Severe stop Verified 10/23/23 09:30 breathing Penicillins Allergy Severe Rash Verified 10/23/23 09:30 diphenhydramine (From AdvReac Severe Other Verified 10/23/23 09:30 Benadryl) oxycodone (From Percocet) AdvReac Severe other Verified 10/23/23 09:30 Family History Father Myocardial infarction, Onset Age: 63 passed from it. Diabetes Mother Diabetes Parkinsons Breast cancer Grandmother Hypertension CVA (cerebral vascular accident) Surgical History History of carpal tunnel release history of stoma revision History of arthroscopic knee surgery History of back surgery History of colostomy History of bowel resection H/O: hysterectomy History of breast biopsy History of tonsillectomy Social History Smoking Status: Never smoker alcohol intake: never substance use type: does not use what type of physical activity do you participate in: none ROS ROS ED Constitutional Constitutional ED: Denies chills, fever(s) or weight loss Eyes Eyes: Denies blurry vision, change in vision or diplopia ENT ENT ED: Denies ear pain, rhinorrhea or sore throat Cardiovascular Cardiovascular: Denies chest pain, orthopnea, palpitations or racing heartbeat Respiratory/Chest Respiratory/Chest: Denies cough, dyspnea or orthopnea Gastrointestinal Gastrointestinal: Denies abdominal pain, diarrhea, nausea or vomiting Genitourinary Genitourinary ED: Denies dysuria, hematuria or urinary frequency Musculoskeletal Musculoskeletal: Reports other Details: Bilateral lower extremity pain from knees inferiorly ; Denies arthralgias, back pain, myalgias or neck pain Integumentary Reports Abrasions; Denies abscess or rash Neurologic Neurologic: Reports paresthesias; Denies headache(s) or weakness Psychiatric Psychiatric: Denies anxiety, depression, suicidal ideation or suicidal thoughts Endocrine Endocrinology: Denies polydipsia, polyphagia or polyuria Allergic/Immunologic Allergic/Immunologic ED: Denies mouth swelling, tongue swelling or urticaria EXAM Physical Exam Const Vital Signs: 10/23/23 09:30 10/23/23 09:30 Temperature 95.9 F L Temperature Source Temporal Pulse Rate 78 75 Respiratory Rate 16 16 Blood Pressure 138/75 H 138/75 H Blood Pressure Mean 96 96 Pulse Ox 94 100 Oxygen Delivery Method Room Air Room Air Positive well nourished, well developed and obese General Appearance ED: well developed Nutritional Appearance: obese HEENT Reports normocephalic, head/scalp atraumatic and moist mucous membranes Eyes PERRL and EOMs intact bilaterally Neck no lymphadenopathy, supple and no JVD Resp normal respiratory effort and clear to auscultation bilaterally Cardio regular rate, regular rhythm and no murmurs GI normal to inspection, nondistended, normoactive bowel sounds and non-tender Palpation: soft Back/Spine no CVA tenderness Back/Spine Narrative: Slow painful range of motion of the upper back. There is a long 15 cm linear abrasion. There is an approximately 10 cm long laceration just medial to this. The wound edges are not approximated. It is into the subcutaneous tissue. It does appear clean. There is an abrasion to the lateral left foot. There is abrasion to the medial right proximal leg. There is no obvious deformities. There are abrasions noted to the left elbow and left posterior shoulder region Extremity normal to inspection and full ROM General Extremety ED: Negative for edema General Extremity: Negative for edema Neuro oriented x3 and CN's II-XII intact bilaterally Neuro Narrative: Patient reports tingling like sensation with sensory testing of the lower extremities. Sensorium / Orientation: alert Motor Exam: strength 5/5 throughout Psych mental status grossly normal Mood & Affect: Negative for depressed or tearful Skin no rashes or lesions noted and no wounds MDM MDM MDM Narrative Medical decision making narrative: My independent interpretation of the bilateral tib-fib x-rays is no acute fracture. My independent interpretation of the bilateral foot x-rays is no acute fracture My independent interpretation of the chest x-ray is no acute fracture pneumothorax or pleural effusion Patient list is opioid allergy. Therefore she received Tylenol and Motrin for pain. The back laceration was locally anesthetized using 1% lidocaine washed with Shur-Clens and explored. It was closed using a total of 11 simple interrupted 4-0 Ethilon sutures. Wound was dressed with bacitracin and a Vaseline coated gauze. Nonstick Telfa was applied followed by tape. Wound care was discussed with patient and her . Stitches will need to be removed in 10 days. Would recommend rest oral hydration. She is to expect soreness. History & Record Review Discussion w/independent historian: Patient, Family and Significant other Radiography Diagnostic Testing: Clinical Impression(s) from Imaging Studies Tibia/Fibula X-Ray 10/23/23 10:05 IMPRESSION: Normal x-ray examination of the right tibia and fibula. Electronically Signed: Hipolito Cardona MD at 10:38 EDT , Chest X-Ray 10/23/23 10:15 IMPRESSION: Normal x-ray examination of the chest. Electronically Signed: Reji Osorio MD at 10:39 EDT Reading Location ID and State: [facility] / [place] , Service support , Foot X-Ray 10/23/23 10:15 IMPRESSION: Small plantar calcaneal spur. No demonstrated fracture. Electronically Signed: Hipolito Cardona MD at 10:43 EDT , Foot X-Ray 10/23/23 10:15 IMPRESSION: Normal x-ray examination of the left foot. Electronically Signed: Hipolito Cardona MD at 10:40 EDT , Tibia/Fibula X-Ray 10/23/23 10:15 IMPRESSION: Normal x-ray examination of the left tibia and fibula. Electronically Signed: Hipolito Cardona MD at 10:39 EDT , Discharge Plan Triage Chief Complaint: Trauma ED Provider: Antonio Calero Dx/Rx/DC Orders Prescriptions: No Action Mounjaro 5 mg/0.5 mL pen injector 5 mg subcut QWEEK Qty: 2 4RF Primary Care Provider: Guanaco Terry Referrals: Guanaco Terry, DO [Primary Care Provider] - Print Language: Polish
--- NOTE | 2023-10-23 10:15 | RAD_ITS ---
STUDY: X-RAY - LEFT FOOT CLINICAL: Female, 63 years old. Pain. TECHNIQUE: 3 views of the left foot. COMPARISON: None. FINDINGS: Normal talus, calcaneus, and tarsal bones. Normal visualized subtalar, talonavicular, calcaneocuboid, tarsal and tarsometatarsal articulations. Normal metatarsi. Normal metatarsophalangeal joint of the great toe. Normal tibial and fibular sesamoid bones. Normal interphalangeal joint of the great toe. Normal phalanges of the great toe. Normal second through fifth metatarsophalangeal joints. Normal interphalangeal joints and phalanges of the lesser toes. The soft tissue structures are unremarkable. There is no demonstrated fracture. RAD/Foot min 3 Views IMPRESSION: Normal x-ray examination of the left foot. Electronically Signed: Hipolito Cardona MD at 10:40 EDT ,
--- NOTE | 2023-10-23 10:15 | RAD_ITS ---
STUDY: X-RAY - RIGHT FOOT CLINICAL: Female, 63 years old. Trauma. TECHNIQUE: 3 views of the right foot. COMPARISON: None. FINDINGS: Intact talus, calcaneus, and tarsal bones. There is a small plantar calcaneal spur. Normal visualized subtalar, talonavicular, calcaneocuboid, tarsal and tarsometatarsal articulations. Normal metatarsi. Normal metatarsophalangeal joint of the great toe. Normal tibial and fibular sesamoid bones. Normal interphalangeal joint of the great toe. Normal phalanges of the great toe. Normal second through fifth metatarsophalangeal joints. Normal interphalangeal joints and phalanges of the lesser toes. The soft tissue structures are unremarkable. There is no demonstrated fracture. RAD/Foot min 3 Views IMPRESSION: Small plantar calcaneal spur. No demonstrated fracture. Electronically Signed: Hipolito Cardona MD at 10:43 EDT ,
--- NOTE | 2023-10-23 10:15 | RAD_ITS ---
STUDY: X-RAY - LEFT TIBIA AND FIBULA REASON FOR EXAM: Female, 63 years old. Pain. TECHNIQUE: 3 views of the left tibia and fibula were obtained. COMPARISON: None. FINDINGS: Normal visualized tibia. Normal visualized fibula. There is no demonstrated acute fracture. The soft tissue structures are unremarkable. RAD/Tibia & Fibula 2 Views IMPRESSION: Normal x-ray examination of the left tibia and fibula. Electronically Signed: Hipolito Cardona MD at 10:39 EDT ,
--- NOTE | 2023-10-23 10:15 | RAD_ITS ---
STUDY: X-RAY CHEST REASON FOR EXAM: Female, 63 years old. Trauma. Pain. TECHNIQUE: Single frontal view of the chest. COMPARISON: None. FINDINGS: The lungs are clear and expanded. There is no demonstrated pleural abnormality. Normal size heart. Normal mediastinum and lindsay. Normal visualized pulmonary arteries. Normal visualized aortic arch and descending thoracic aorta. Normal visualized thoracic spine. Normal visualized ribs, clavicles, and shoulders. No abnormality of the visualized soft tissue structures of the upper abdomen. RAD/Chest 1 View IMPRESSION: Normal x-ray examination of the chest. Electronically Signed: Reji Osorio MD at 10:39 EDT ,
[2023-10-23] MEDS: Ibuprofen 600 MG Tablet PO (10:16)
[2023-10-23] MEDS: Acetaminophen 500 MG Tablet 1000 MG PO (10:17)
[2023-10-23] MEDS: Diphth,Pertuss(Acell),Tet Vac 0.5 ML Vial IM (10:17)
[2023-10-23] MEDS: Lidocaine 1% (20 ml mdv) 20 ML Vial INFILT (10:29)
[2023-10-23 11:24] VITALS: BP 135/75; PULSE 69; RESP 18; TEMP 36.6; O2SAT 99
== END 2023-10-23 11:28 | disposition home or self-care (01) ==
PROVIDERS: Emergency Provider Emergency Medicine; PCP Family Medicine; Visit Provider Emergency Medicine
DX: S21.219A Laceration without foreign body of unspecified back wall of thorax without penetration into thoracic cavity, initial encounter (principal); E11.40 Type 2 diabetes mellitus with diabetic neuropathy, unspecified; S40.212A Abrasion of left shoulder, initial encounter; S50.312A Abrasion of left elbow, initial encounter; S80.811A Abrasion, right lower leg, initial encounter; S90.812A Abrasion, left foot, initial encounter; W18.39XA Other fall on same level, initial encounter; W26.8XXA Contact with other sharp object(s), not elsewhere classified, initial encounter; Y93.89 Activity, other specified; Y99.8 Other external cause status; Y92.009 Unspecified place in unspecified non-institutional (private) residence as the place of occurrence of the external cause; E66.9 Obesity, unspecified; Z68.33 Body mass index [BMI] 33.0-33.9, adult; Z79.85 Long-term (current) use of injectable non-insulin antidiabetic drugs
CPT/HCPCS: 12004; 71045; 73590; 73630; 90715; 99282

== ENCOUNTER → 2023-11-21 | Outpatient (CLI) | payer MEDICARE, SELFPAY ==
--- NOTE | 2023-11-21 14:05 | RAD_ITS ---
STUDY: X-RAY - RIGHT KNEE REASON FOR EXAM: Female, 63 years old. Pain. TECHNIQUE: 4 view(s) of the knee. COMPARISON: None. FINDINGS: Osteopenia. Mild arthrosis of the medial compartment without osteophytes. Mild arthrosis of the lateral compartment without osteophytes. Normal patellofemoral compartment. Normal soft tissues and no joint effusion. RAD/Knee 4 or More Views IMPRESSION: Osteopenia with mild medial and lateral compartmental arthrosis. No other abnormality. Electronically Signed: Reji Osorio MD at 16:04 EDT ,
== END | disposition home or self-care (01) ==
LOC: RAD 14:01
PROVIDERS: PCP Family Medicine; Referring Provider Family Medicine; Visit Provider Family Medicine
DX: M17.11 Unilateral primary osteoarthritis, right knee (principal)
CPT/HCPCS: 73564

== ENCOUNTER → 2023-12-23 | Outpatient (CLI) | payer MEDICARE, SELFPAY ==
--- NOTE | 2023-12-23 08:44 | MRI_ITS ---
EXAM: MR RIGHT LOWER EXTREMITY WITHOUT INTRAVENOUS CONTRAST, HIP CLINICAL INDICATION: pain and injury TECHNIQUE: Multiplanar and multisequence MR images of the right hip without intravenous contrast. COMPARISON: November 21, 2023 FINDINGS: TENDONS: FLEXORS: Unremarkable. Intact. EXTENSORS/HAMSTRING: Unremarkable. Intact. ABDUCTORS: Unremarkable. Intact. ADDUCTORS: Unremarkable. Intact. ROTATORS: Unremarkable. Intact. MUSCLES: Unremarkable. Normal bulk and signal. FLUID: Unremarkable. No joint effusion. No trochanteric bursitis. No Yaala''s cyst. LABRUM: Unremarkable. No evidence of a tear on this non-arthrogram exam. CARTILAGE: Focal chondral loss at the median ridge of the patella with subchondral marrow signal alteration. Articular cartilage intact. BONES/JOINTS: Nondisplaced fracture with marrow edema is identified involving the fibular head. Heterogeneous marrow involving the medial distal femoral condyle and medial metaphysis, extending centrally to the intercondylar notch. Small amount of suprapatellar joint fluid. OTHER SOFT TISSUES: No other soft tissue masses or fluid collections. MRI/Lower Ext Joint Only (Routine) IMPRESSION: 1. Nondisplaced fracture with marrow edema is identified involving the fibular head. 2. Distal femur marrow edema without fracture. Electronically Signed: Alex Sumner MD at 0:25 EDT ,
== END | disposition home or self-care (01) ==
LOC: MRI 12:29
PROVIDERS: PCP Family Medicine; Referring Provider Physician Assistant; Visit Provider Physician Assistant
DX: M23.91 Unspecified internal derangement of right knee (principal)
CPT/HCPCS: 73721

== ENCOUNTER → 2024-05-20 | Outpatient (CLI) | payer MEDICARE, SELFPAY ==
[2024-05-20 12:38] LABS: AST(SGOT) 12 U/L (15-37); Alanine Aminotransfer ALT/SGPT 19 U/L (13-56); Albumin, Serum 3.6 g/dL (3.2-5.0); Alkaline Phosphatase 89 U/L (45-117); Anion Gap 6 (5-15); BUN 9 mg/dL (7-18); BUN/Creat Ratio 10.9 RATIO (10-20); Calcium,Total 9.3 mg/dL (8.5-10.1); Chloride 106 mmol/L (98-107); Cholesterol 181 mg/dL (200); Creatinine, Serum 0.82 mg/dL (0.55-1.02); EST Glomerular Filtration Rate 74 mL/min (>60); Est Glom Filt Rate - Afr Amer 90 mL/min (>60); Globulin 3.5 g/dL (2.2-4.2); Glucose 109 mg/dL (74-106); High Density Lipoprotein 57 mg/dL; Protein, Total 7.1 g/dL (6.4-8.2); Sodium Level 139 mmol/L (136-145); Triglycerides 110 mg/dL; Very Low Density Lipoprotein 22 mg/dL (5-40)
== END | disposition home or self-care (01) ==
LOC: BIMLAB 11:17
PROVIDERS: PCP Family Medicine; Referring Provider Family Medicine; Visit Provider Family Medicine
DX: E11.9 Type 2 diabetes mellitus without complications (principal)
CPT/HCPCS: 36415; 80053; 80061